=== PATIENT | male | born 1965 | race Caucasian/White ===

== ENCOUNTER 2023-08-19 10:39 | Emergency (ER) | payer OTHER, SELFPAY ==
[2023-08-19 10:40] VITALS: BP 181/75; PULSE 76; RESP 15; TEMP 36.4; O2SAT 96; BMI 42.9
--- NOTE | 2023-08-19 11:31 | EX.ED.DYSGE1 ---
HPI <KAPIL Macario - Last Filed: 08/19/23 12:51> History of Present Illness Chief Complaint: Cough Narrative Narrative: 57-year-old male with past medical history of seasonal allergies, COPD states he woke up and had a lot of nasal mucus drainage from his allergies and then coughed up a chunk of blood. He states it felt like it was coming from the back of his throat and roof of his mouth. He has not had any further symptoms since then and has had no chest pain or shortness of breath. No fever or chills. He has a chronic cough from previous smoking history. He states he quit smoking 10 years ago. He uses rescue inhaler, Trelegy, and multiple allergy medications. He gets yearly CT scans with his camp guard Dr. Ema Garduno for monitoring and has never had abnormalities. He has no history of DVT/PE or risk factors. [facility] <KAPIL Macario - Last Filed: 08/19/23 12:51> [facility] Medical History (Updated 08/19/23 @ 12:45 by KAPIL Macario) GERD (gastroesophageal reflux disease) COPD (chronic obstructive pulmonary disease) Hypertension Ulcer Allergy/AdvReac Type Severity Reaction Status Date / Time codeine Allergy Mild NEEDS Verified 08/19/23 10:43 FOLLOW-UP losartan Allergy Mild NEEDS Verified 08/19/23 10:43 FOLLOW-UP Social History Smoking Status: Former smoker ROS <KAPIL Macario - Last Filed: 08/19/23 12:51> ROS ED ROS Narrative Constitutional: Negative for fever, chills, malaise. CVS: Negative for palpitations, chest pain, syncope. Respiratory: Positive for cough. negative for shortness of breath. GI: Negative for abdominal pain, nausea, vomiting, melena, hematochezia. EXAM <KAPIL Macario - Last Filed: 08/19/23 12:51> Physical Exam Narrative Exam Narrative: CONST: Patient sitting in no acute distress. EYES: Normal inspection. NECK: Normal inspection. RESP: No respiratory distress, mild prolonged expiratory phase throughout. CVS: Regular rate and rhythm, no murmur, no gallop. SKIN: Color normal, no rash, warm, dry, intact. EXTREMITIES: Normal appearance, no pedal edema. NEURO: Alert and answering questions appropriately. PSYCH: Normal affect. Const Vital Signs: 08/19/23 10:40 08/19/23 12:04 08/19/23 12:50 Temperature 97.6 F L 97.6 F L Temperature Source Temporal Pulse Rate 76 76 Respiratory Rate 15 15 Respiratory Effort Normal Non-Labored Respiratory Depth Normal Respiratory Pattern Normal Blood Pressure 181/75 H 178/78 H Blood Pressure Mean 110 111 Pulse Ox 96 98 Oxygen Delivery Method Room Air Room Air <Dr. Neo Bailey DO - Last Filed: 08/19/23 17:14> Physical Exam Const Vital Signs: 08/19/23 10:40 08/19/23 12:04 08/19/23 12:50 Temperature 97.6 F L 97.6 F L Temperature Source Temporal Pulse Rate 76 76 Respiratory Rate 15 15 Respiratory Effort Normal Non-Labored Respiratory Depth Normal Respiratory Pattern Normal Blood Pressure 181/75 H 178/78 H Blood Pressure Mean 110 111 Pulse Ox 96 98 Oxygen Delivery Method Room Air Room Air MDM <KAPIL Macario - Last Filed: 08/19/23 12:51> [facility] MDM Narrative Medical decision making narrative: Patient had mucus drainage and coughed up a blood clot x 1. States he otherwise feels well and has had no recent fever or increased upper respiratory symptoms. He has no chest pain or shortness of breath. He was sent here for evaluation by urgent care. He appears well and has stable vital signs. He speaking full sentences 96% on room air no distress. He has a normal posterior oropharynx with no evidence of blood. Lungs have mild expiratory wheezing which she states is chronic from his COPD. He is a former smoker. CXR shows no acute process. He is not on anticoagulation and according to Wells criteria is low risk for DVT/PE. I do not feel that he needs emergent blood work or further testing. He has follow-up scheduled with his camp guard next week. I discussed he should return for any worsening symptoms including chest pain, shortness of breath, or recurrent hemoptysis and he expressed understanding. He was discharged in stable condition. Radiography Diagnostic Testing: Clinical Impression(s) from Imaging Studies Chest X-Ray 08/19/23 11:35 IMPRESSION: Hyperinflation and COPD. Electronically Signed: Naga Brink MD at 12:21 EDT , ED attending interpretation of 2 view chest x-ray shows normal heart size, chronic changes, no acute infiltrate. <Dr. Neo Bailey, DO - Last Filed: 08/19/23 17:14> MDM Radiography Diagnostic Testing: Clinical Impression(s) from Imaging Studies Chest X-Ray 08/19/23 11:35 IMPRESSION: Hyperinflation and COPD. Electronically Signed: Naga Brink MD at 12:21 EDT , Additional Tests and Interventions Additional Tests or Interventions: I have personally performed a face to face assessment of the patient and have reviewed the MELIZA Note. I performed a substantive portion of the visit including all aspects of the following. My renteria findings include: History: Patient presents with an episode of hemoptysis that occurred today. Patient states he has a history of COPD and has a chronic cough. Patient states that today however, he noted some blood in his sputum. Patient states it was approximately the size of a half dollar. Patient states it was dark blood. Patient denies any recent fevers or chills. Patient denies any shortness of breath. Patient does admit to some nausea but denies any vomiting. Patient admits to some upper respiratory nasal congestion. Patient states that he has had other episodes of coughing after his episode of hemoptysis which were clear. Exam: Vital signs are stable except for an elevated blood pressure 181/75. Patient is afebrile. Patient is in no acute distress. Oral mucosa is pink and moist. Neck is supple. Trachea is midline. There is no JVD. Heart was regular rate and rhythm. Lungs showed diffuse expiratory wheezes. There is good respiratory effort noted. There are no retractions noted. Abdomen is soft. Bowel sounds are normal. There is no tenderness. Cranial nerves II through XII are intact. There are no focal motor or sensory deficits. Medical Decision Making: Differential diagnosis includes pneumonia, mass, bronchitis, and viral infection. Chest x-ray will be obtained to assess for pneumonia, pneumothorax, and mass. PA and lateral chest x-ray was obtained. There are 2 views. My independent interpretation, there is hyperinflation and COPD. There is no acute infiltrate. Bony thorax is normal. There is no cardiomegaly noted. Radiologist also interpreted the x-rays and agrees. Patient was advised of his findings. Patient was instructed to use his home inhalers as prescribed. Patient was instructed to follow-up with his primary care physician in 5 to 7 days. Patient was instructed to return if worse in any way. Patient understood and was agreeable with the plan. All questions were answered. Discharge Plan Triage Chief Complaint: Cough ED Midlevel Provider: Agnes Miles ED Provider: Neo Bailey Dx/Rx/DC Orders Clinical Impression: History of COPD, Cough with hemoptysis Instructions: ED Hemoptysis Primary Care Provider: ROSIBEL GARCIA Referrals: ROSIBEL GARCIA NP-C [Primary Care Provider] - Activity Restrictions/Additional Instructions: Chest x-ray appears within normal limits. At this time with only 1 episode of coughing up blood and no other symptoms I have low concern for blood clot. However if you develop any chest pain, shortness of breath, or cough up blood again please come back for reevaluation. Otherwise follow-up with your camp guard as scheduled. Print Language: Hong Konger Disposition Disposition: Home, Self Care Discharge Date/Time: 08/19/23 12:51
--- NOTE | 2023-08-19 11:35 | RAD_ITS ---
STUDY: X-RAY CHEST REASON FOR EXAM: Male, 57 years old. Worsening productive cough. COPD. TECHNIQUE: PA and lateral views of the chest. COMPARISON: None. FINDINGS: There is hyperinflation of the lungs consistent with chronic obstructive lung disease (COPD). Scattered calcified granulomas. There is no demonstrated pleural abnormality. Normal size heart. Normal mediastinum and liyah. Normal visualized pulmonary arteries. Normal visualized aortic arch and descending thoracic aorta. Normal visualized thoracic spine. Normal visualized ribs, clavicles, and shoulders. There is no demonstrated abnormality of the visualized soft tissue structures of the upper abdomen. RAD/Chest PA and Lateral IMPRESSION: Hyperinflation and COPD. Electronically Signed: Naga Brink MD at 12:21 EDT ,
[2023-08-19 12:50] VITALS: BP 178/78; PULSE 76; RESP 15; TEMP 36.4; O2SAT 98
== END 2023-08-19 12:51 | disposition home or self-care (01) ==
PROVIDERS: Emergency Provider Emergency Medicine; PCP Nurse Practitioner; Visit Provider Emergency Medicine
DX: R04.2 Hemoptysis (principal); J44.9 Chronic obstructive pulmonary disease, unspecified; I10 Essential (primary) hypertension; Z87.891 Personal history of nicotine dependence; K21.9 Gastro-esophageal reflux disease without esophagitis; R05.9 Cough, unspecified
CPT/HCPCS: 71046; 99282

== ENCOUNTER → 2024-07-04 | Outpatient (CLI) | payer OTHER, SELFPAY ==
[2024-07-04 08:53] LABS: Absolute Eosinophil Count 0.69 X10^3/uL (0.0-0.23)
[2024-07-06 12:08] LABS: Immunoglobulin E 2967 IU/mL (6-495)
== END | disposition home or self-care (01) ==
LOC: LAB 08:07
PROVIDERS: PCP Nurse Practitioner; Referring Provider Nurse Practitioner Primary Care; Visit Provider Nurse Practitioner Primary Care
DX: J44.89 Other specified chronic obstructive pulmonary disease (principal); Z88.9 Allergy status to unspecified drugs, medicaments and biological substances
CPT/HCPCS: 36415; 82785; 85048